=== PATIENT | female | born 1990 | race Hispanic/Latino ===

== ENCOUNTER 2016-09-26 14:31 | Emergency (ER) | payer OTHER ==
[~2016-09-26] VITALS: Ht 162.6 cm; Wt 78.6 kg
[~2016-09-26 14:31] MED LIST: TRAM150C25 PO
[2016-09-26 14:48] VITALS: BP 138/96; PULSE 97; RESP 16; O2SAT 99
[2016-09-26] MEDS ORDERED: HYDROmorphone 0.5 mg/0.5 mL iSecure Syringe IVPUSH ONE (16:50)
[2016-09-26] MEDS ORDERED: Ondansetron 2 mg/mL 2 mL Inj IVPUSH ONE (16:50)
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
[2016-09-26] MEDS ORDERED: HYDR-4003 PO (20:00)
[2016-09-26] MEDS ORDERED: MTH4T PO (20:00)
[2016-09-26] MEDS ORDERED: HYDROcodone-APAP 5-325 mg Tablet PO ONE (20:10)
[2016-09-26 20:31] VITALS: BP 124/74; PULSE 54; RESP 16; O2SAT 100
== END 2016-09-26 20:32 | disposition home or self-care (01) ==
LOC: SED 14:31
DX: S39.012D Strain of muscle, fascia and tendon of lower back, subsequent encounter (principal); S16.1XXD Strain of muscle, fascia and tendon at neck level, subsequent encounter; M51.26 Other intervertebral disc displacement, lumbar region; V48.5XXD Car driver injured in noncollision transport accident in traffic accident, subsequent encounter; Y93.9 Activity, unspecified; Y92.9 Unspecified place or not applicable; Y99.8 Other external cause status; Z87.891 Personal history of nicotine dependence; Z88.5 Allergy status to narcotic agent; Z88.8 Allergy status to other drugs, medicaments and biological substances
CPT/HCPCS: 72125; 72158; 96374; 96375; 99284; A9585; J1170; J2405

== ENCOUNTER 2016-09-30 11:50 | Emergency (ER) | payer OTHER ==
[~2016-09-30] VITALS: Ht 162.6 cm; Wt 78.2 kg
[~2016-09-30 11:50] MED LIST changes: +HYDR-4003 PO; +MTH4T PO
[2016-09-30 11:55] VITALS: BP 126/80; PULSE 104; RESP 16; O2SAT 98
[2016-09-30] MEDS ORDERED: Ketorolac 30 mg/mL 2 mL Inj IM ONE (13:15)
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
[2016-09-30 14:15] LABS: BASOPHILS % (AUTO) 0.3 % (0-3); EOSINOPHILS % (AUTO) 0.7 % (0-5); MONOCYTES % (AUTO) 7.2 % (4-12); Mean Corpuscular Hemoglobin 28.6 pg (27.0-35.0); Mean Corpuscular Volume 86.5 fL (81-100); NEUTROPHILS % (AUTO) 64.9 % (40-74); Platelet Count 208 bil/L (150-400)
[2016-09-30 14:47] LABS: ERYTHROCYTE SEDIMENTATION RATE 1 mm/hr (0-32)
--- NOTE | 2016-09-30 15:32 | DRSVH ---
PROCEDURE: MRI CERVICAL SPINE WITHOUT CONTRAST ([id number]) INDICATIONS: neck and back pain TECHNIQUE: Noncontrast sagittal T1 spin echo and T2 fast spin echo, sagittal STIR, foraminal oblique sagittal T2 fast spin echo, and axial gradient echo or T2 fast spin echo through the cervical spine. COMPARISON: None. FINDINGS: Image quality: Excellent. Alignment and Curvature: There is mild straightening/reversal of normal cervical curvature. There is trace retrolisthesis of C5 on C6. Bone Marrow: Marrow demonstrates normal overall signal. Spinal Cord: Visualized spinal cord has normal size and signal. No cerebellar tonsillar herniation. Paraspinous Soft Tissues: No paravertebral masses. Prevertebral soft tissues are normal in thicknes s. Discs: Mild desiccation is present throughout the cervical spine. C2-C3: No disc bulge, spinal stenosis or foraminal narrowing. C3-C4: Mild disc bulge with mild spinal stenosis. Minimal to mild bilateral foraminal narrowing. C4-C5: Mild disc bulge with mild spinal stenosis. Minimal bilateral foraminal narrowing. C5-C6: Mild disc bulge with mild spinal stenosis. Mild left and minimal to mild right foraminal narro wing. C6-C7: No disc bulge, spinal stenosis or foraminal narrowing. C7-T1: No disc bulge, spinal stenosis or foraminal narrowing. IMPRESSION: 1. Mild disc bulges are present from C3-4 through C5-6. 2. Spinal stenosis is present at C3-4 through C5-6 secondary to disc bulges, with contributing factor with reversal of cervical curvature. 3. Minimal to mild foraminal narrowing as above, predominantly secondary to reversal of cervical curv ature and early degenerative changes. Dictated by: Lata Augustine M.D. on 09/30/2016 at 15:24 Approved by: Lata Augustine M.D. on 09/30/2016 at 15:30
--- NOTE | 2016-09-30 15:35 | DRSVH ---
PROCEDURE: MRI THORACIC SPINE WITHOUT CONTRAST ([id number]) INDICATIONS: neck and back pain TECHNIQUE: Noncontrast sagittal T1 spine echo and T2 fast spin echo, sagittal STIR, axial T1 and T2 fast spin ec ho through the thoracic spine. COMPARISON: None. FINDINGS: Image quality: Excellent. Alignment and Curvature: There is normal bony alignment. Bone Marrow: Marrow is of normal overall signal. No acute vertebral body compression fractures. Spinal Cord: Visualized spinal cord is normal in size and signal. Paraspinous Soft Tissues: No paravertebral masses. Miscellaneous: On axial images, central canal and foramina appear widely patent at all scanned level s. IMPRESSION: 1. No visualized cause of pain. Dictated by: Lata Augustine M.D. on 09/30/2016 at 15:31 Approved by: Lata Augustine M.D. on 09/30/2016 at 15:33
== END 2016-09-30 15:31 | disposition home or self-care (01) ==
LOC: SED 11:50
DX: M54.5 Low back pain (principal); R29.818 Other symptoms and signs involving the nervous system; R32 Unspecified urinary incontinence; V49.9XXA Car occupant (driver) (passenger) injured in unspecified traffic accident, initial encounter; Y92.410 Unspecified street and highway as the place of occurrence of the external cause; Y93.89 Activity, other specified; Y99.8 Other external cause status; Z87.891 Personal history of nicotine dependence; Z88.8 Allergy status to other drugs, medicaments and biological substances; Z88.5 Allergy status to narcotic agent
CPT/HCPCS: 36415; 72141; 72146; 80048; 81002; 81025; 85025; 85651; 96372; 99285; J1885

== ENCOUNTER 2016-10-03 20:02 | Observation (INO) | payer OTHER ==
[~2016-10-03] VITALS: Ht 162.6 cm; Wt 79.2 kg
[2016-10-03 20:25] VITALS: BP 140/90; PULSE 78; RESP 18; O2SAT 99
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
[2016-10-03] MEDS: 0.9% Sodium Chloride 1,000 ML IV SCH ×2 (22:27→23:28)
[2016-10-03] MEDS: Sodium Chloride LOK Flush 10 mL Syringe IVFLUSH SCH (22:27)
[2016-10-03] MEDS: HYDROmorphone 0.5 mg/0.5 mL iSecure Syringe IVPUSH PRN (22:31)
[2016-10-03] MEDS: Ondansetron 2 mg/mL 2 mL Inj IVPUSH PRN (22:32)
[2016-10-03 22:33] VITALS: BP 123/65; PULSE 49; RESP 16; O2SAT 98
[2016-10-03 22:36] LABS: TROPONIN T 0.01 ug/L (0.0-0.011)
[2016-10-03 22:43] LABS: BASOPHILS % (AUTO) 0.2 % (0-3); EOSINOPHILS % (AUTO) 0.4 % (0-5); MONOCYTES % (AUTO) 4.9 % (4-12); Mean Corpuscular Hemoglobin 28.5 pg (27.0-35.0); Mean Corpuscular Volume 86.2 fL (81-100); NEUTROPHILS % (AUTO) 86.6 % (40-74); Platelet Count 261 bil/L (150-400)
[2016-10-04] VITALS (7 sets, daily range): BP systolic 111–133; BP diastolic 58–82; PULSE 52–73; RESP 16–18; O2SAT 98–100
[2016-10-04] MEDS: Ondansetron 2 mg/mL 2 mL Inj IVPUSH PRN ×6 (00:55→22:52)
[2016-10-04] MEDS: HYDROmorphone 0.5 mg/0.5 mL iSecure Syringe IVPUSH PRN ×7 (00:55→23:50)
[2016-10-04] MEDS ORDERED: _HYDROcodone/APAP 5-325 mg Tablet PO PRN (01:25)
[2016-10-04] MEDS ORDERED: _Ondansetron ODT 4 mg Tablet PO PRN (01:25)
[2016-10-04] MEDS ORDERED: _oxyCODONE/APAP 5-325 mg Tablet PO PRN (01:35)
[2016-10-04 01:58] LABS: APPEARANCE,URINE CLEAR (CLEAR,HAZY); COLOR,URINE STRAW (YELLOW); OCCULT BLOOD,URINE MODERATE (NEGATIVE); PH,URINE 6.5 (5.0-8.0); UROBILINOGEN,URINE NORMAL (NORMAL)
[2016-10-04] MEDS ORDERED: Piperacillin-Tazo 3.375 Gm Inj 3.375 GM in Dextrose 5% Minibag Plus 50 ML IV ONE (02:00)
[2016-10-04] MEDS ORDERED: 0.9% Sodium Chloride 1,000 ML IV ONE (02:05)
[2016-10-04] MEDS ORDERED: Alum-Mag Hydrox-Simeth 30 mL Suspension PO PRN (02:25)
[2016-10-04] MEDS ORDERED: Polyethylene Glycol (PEG) 17 Gm Powder PO PRN (02:25)
[2016-10-04] MEDS ORDERED: fentaNYL-PF 50 mCg/mL 2 mL Inj ONE (02:30)
[2016-10-04] MEDS ORDERED: Propofol 10,000 mCg/mL 20 mL Inj ONE (02:30)
[2016-10-04] MEDS ORDERED: OXYC1TAB24 PO (03:33)
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
[2016-10-04] MEDS: Lactated Ringer's 1,000 ML IV SCH ×6 (05:07→22:11)
--- NOTE | 2016-10-04 05:42 | NUR ---
ADMIT; 26 yr old female admitted from [facility] [place] via [facility] at approx. 0310 to room 1028 with c/o nausea/vomiting, back pain, chest pain and right side pain. See admit screens. Zofran given for nausea which helped. Dr. Benoit in to see pt about 4805.
[2016-10-04 07:04] LABS: BASOPHILS % (AUTO) 0.1 % (0-3); EOSINOPHILS % (AUTO) 0.2 % (0-5); MONOCYTES % (AUTO) 2.4 % (4-12); Mean Corpuscular Hemoglobin 28.8 pg (27.0-35.0); Mean Corpuscular Volume 86.8 fL (81-100); NEUTROPHILS % (AUTO) 90.2 % (40-74); Platelet Count 190 bil/L (150-400)
[2016-10-04 07:27] LABS: TROPONIN T 0.01 ug/L (0.0-0.011)
[2016-10-04 07:38] LABS: Magnesium 1.9 mg/dL (1.6-2.6); Phosphorus 2.9 mg/dL (2.5-4.9)
--- NOTE | 2016-10-04 08:06 | DRSVH ---
PROCEDURE: CT ANGIO CHEST PULMONARY EMBOLISM ([id number]) INDICATIONS: chest pain, vomiting, 23K wbc count, abdominal brianna TECHNIQUE: After the administration of intravenous contrast, 2 mm thick sections acquired from the pulmonary api emerson to the posterior costophrenic angles. 3-dimensional maximum intensity projection (MIP) coronal a nd sagittal reformats were then acquired through the thorax. For radiation dose reduction, the follo wing was used: automated exposure control, adjustment of mA and/or kV according to patient size. COMPARISON: None. FINDINGS: Image quality: Excellent. Pulmonary arteries: Pulmonary arteries are normal in size, and demonstrate no intraluminal filling d efects to suggest central pulmonary embolism. Lungs and pleura: Lungs are clear. No pleural effusions or pneumothorax. Central and peripheral ai rways are patent. Mediastinum: Heart size is normal, without pericardial effusion. No mediastinal or hilar adenopathy . Thoracic aorta is normal in caliber and enhancement. Esophagus is normal in caliber. Small hiatal hernia. Bones and chest wall: No suspicious bony lesions. Ribs and thoracic spine appear intact throughout. Thyroid gland is normal. No axillary or supraclavicular adenopathy. Abdomen: Visualized upper abdominal solid organs appear normal in the early arterial phase of enhanc ement. IMPRESSION: 1. No evidence for central pulmonary embolism. 2. Small hiatal hernia. 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 Dictated by: Jayce Valenzuela M.D. on 10/04/2016 at 8:02 Approved by: Jayce Valenzuela M.D. on 10/04/2016 at 8:04
[2016-10-04] MEDS: Sodium Chloride LOK Flush 10 mL Syringe IVFLUSH SCH ×2 (08:30→11:41)
--- NOTE | 2016-10-04 08:32 | DRSVH ---
PROCEDURE: CT ABDOMEN AND PELVIS WITH CONTRAST ([id number]) INDICATIONS: chest pain, vomiting, 23K wbc count, abdominal brianna TECHNIQUE: After the administration of intravenous contrast, 5 mm thick sections acquired from the diaphragm to the symphysis. 5 mm coronal and sagittal reformats were acquired. For radiation dose reduction, the following was used: automated exposure control, adjustment of mA and/or kV according to patient zoila kim. COMPARISON: [facility], CT, ABD/PELVIS W/CON (PN), 12/31/2014, 23:24. FINDINGS: Image quality: Excellent. ABDOMEN: Lung bases: Lung bases are clear. Heart size is normal. Solid organs: Liver and spleen are normal in size and enhancement. Gallbladder surgically absent. Biliary system is non dilated. Pancreas enhances normally. No adrenal nodules. Kidneys demonstrate normal size and enhancement, without hydronephrosis. Peritoneum and bowel: No free fluid or free air. No definite bowel obstruction. There is diffuse flui d throughout the small and large bowel loops. No definite bowel wall thickening or adjacent inflammat ory stranding. The rectum decompressed otherwise unremarkable. Appendix appears normal Nodes and vessels: No retroperitoneal or mesenteric adenopathy by size criteria. Aorta and inferior vena cava are normal in size. Miscellaneous: No ventral hernias. PELVIS: Genitourinary: Bladder wall thickness is normal. Miscellaneous: No inguinal hernias or adenopathy. Bones: No suspicious bony lesions. No vertebral body compression fractures. IMPRESSION: Diffuse fluid seen throughout small and large bowel loops raises the possibility of enterocolitis/gas troenteritis. Recommend clinical correlation Elsewhere, no acute abnormality. Normal appendix. Dictated by: Alli Story M.D. on 10/04/2016 at 8:25 Approved by: Alli Story M.D. on 10/04/2016 at 8:31
--- NOTE | 2016-10-04 08:48 | DRSVH ---
PROCEDURE: X-RAY CHEST ONE VIEW, PORTABLE ([id number]) INDICATIONS: 26 year-old female with chest pain and vomiting. TECHNIQUE: One view of the chest was acquired. COMPARISON: [facility], CR, ABD ACUTE SERIES, 02/23/2015, 20:42. [facility] , CR, CHEST 2VW, 12/10/2010, 16:19. [facility], , ABD ACUTE SERIES, 07/27/2010, 6:50. FINDINGS: Surgical changes and devices: Patient is status post cholecystectomy. Lungs and pleura: No pleural effusions or pneumothorax. Lungs are clear. Mediastinum: Mediastinal contours appear normal. Heart size is normal. Bones and chest wall: No suspicious bony lesions. Overlying soft tissues appear unremarkable. IMPRESSION: No acute cardiopulmonary disease. Dictated by: Byron Turner M.D. on 10/04/2016 at 8:46 Approved by: Byron Turner M.D. on 10/04/2016 at 8:46
--- NOTE | 2016-10-04 09:30 | NUR ---
Imaging Pt taken via WC saline locked to diagnostic imaging for Gastrografin esophageal swallow study. Addendum: 10/04/16 at 1047 by LUCILA POLLACK RN Pt returns @ 2575. Left floor at 0855.
[2016-10-04] MEDS: Pantoprazole 4 mg/mL 10 mL Inj IVPUSH SCH (10:01)
[2016-10-04] MEDS: Piperacillin-Tazo 3.375 Gm Inj 3.375 GM in Dextrose 5% Minibag Plus 50 ML IV SCH ×2 (10:02→17:49)
[2016-10-04] MEDS ORDERED: 0.9% Sodium Chloride 0 ML ONE (10:50)
--- NOTE | 2016-10-04 12:42 | DRSVH ---
PROCEDURE: X-RAY GASTROGRAPHIN STUDY OF ESOPHAGUS/PHARYNX ([id number]) INDICATIONS: ? esophageal rupture. Plz Gastrografin COMPARISON: [facility], CT, CT ABD PELVIS W CON, 10/03/2016, 23:53. [facility], CT, CT ANGIO CHEST PE, 10/03/2016, 23:53. [facility], CR, XR CHEST 1VW (PORTABLE), , 22:07. FINDINGS: Limited Gastrografin esophagram demonstrates normal appearance of the esophagus and there is no evide nce of esophageal perforation. The attending physician was personally present in the room during the examination. IMPRESSION: No esophageal perforation identified. Dictated by: Abraham Cartagena RRRaul Interpreted: Johny Benites MD on 10/04/2016 at 12:40 Transcribed by: MARY on 10/04/2016 at 12:42 Approved by: Johny Benites M.D. on 10/04/2016 at 17:07
--- NOTE | 2016-10-04 13:48 | NUR ---
Social Work-initial assessment: Data:EMR Reviewed. Pt is a 26 y/o female who was admitted on 10/04/16 for intractable chest and abdominal pain per H&P. Pt has coordinated care insurance and PCP is not listed. EMR reviewed. SW met with pt at bedside, SW role explained. Pt resides at home with her family in [place] where she remains independent with ADLS. Pt drives and does not use any DME. SW discussed pt's lack of PCP. Pt informed SW that she has appointment scheduled with Dr. Cowan for October to establish care. SW discussed DPOA/ advanced directive, pt states she has not completed this, information provided. Per RN notes, pt has been up independent in her room. Pt's mother to provide transport home at discharge. No anticipated discharge needs. SW will continue to follow if needs arise. Assessment:Pt who is independent at baseline. Plan:Pt to discharge home when medically stable via POV. No anticipated discharge needs. SW will continue to follow if needs arise. REG [place]
--- NOTE | 2016-10-04 15:51 | NUR ---
Endo Pt leaves via [facility] to Endoscopy for upper endo. RA LEXI. Addendum: 10/04/16 at 1745 by LUCILA POLLACK RN Pt comes back from ENDO 1729. Nausea, dry heaving and painful. Care continues
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
--- NOTE | 2016-10-04 16:57 | PCM.ENDEGD ---
EGD Date of Service: Oct 04, 2016 Physician Val Perkins DO Pre Procedure Diagnosis: Epigastric pain nausea vomiting Post Procedure Dx & Findings: Bilious reflux antral erosions Procedure Esophagogastroduodenoscopy PROCEDURE IN DETAIL: The patient was placed in left lateral decubitus position. Bite block was placed. Scope lubricated, placed in posterior pharynx, passed through the cricopharyngeus and esophagus, slowly advanced the entire length of the gastric pouch, pylorus was identified, scope passed through the pylorus and descending portion of duodenum, withdrawn in the antrum, retroflexed upon itself for view of fundus and cardia. Scope was then withdrawn through the oropharynx. We introduce the scope into the esophagus and as we entered into the distal esophagus, there was evidence of biliary years reflux into the esophagus. The Z line was intact at 39 cm. The stomach showed normal rugae folds and antrum showed several superficial erosions up to a centimeter in size. Biopsies obtained. Retroflexion was done. Stomach was easily inflated well and deflated well using air. Cardia fundus body antrum and pylorus were all visualized. Also in the stomach, there was a significant amount of bilious material. Scope further advanced into the proximal jejunum. Normal villous structures with normal rugae folds were noted. Impression Suspected bilious reflux Antral erosions status post biopsy Recommendation Carafate 10 mL by mouth 4 times a day. Continue Protonix 40 mg IV once a day Clear liquid diet and advance as tolerated starting tomorrow Avoid narcotics Encourage ambulation Presedation Assessment Risks and Benefits Informed consent was obtained from the patient after all risks and benefits including but not limited to drug reaction, infection, pain, bleeding, perforation, as well as alternatives were discussed. Patient monitoring Continuous pulse oximetry, cardiac monitoring, blood pressure monitoring, IV access, and oxygen at 2L per nasal cannula. Complications There were no periprocedural complications identified. Post Procedure Plan Post Procedure Recommendations 1. Restrict activities today. 2. Resume normal activities in the morning. 3. Resume medications. 4. GERD behavioral modification: - Avoid fatty, acidic, spicy, large meals - Do not lie down after meals - Do not eat or drink anything for at least 2 1/2 hours before going to bed at night - Discontinue tobacco and alcohol - Decrease or avoid caffeine - Avoid chocolate and mints - Decrease weight - Avoid aspirin and non steroidal anti-inflammatory agents (NSAID) such as Aleve, Advil, Mobic, Naproxen, Ibuprofen, etc 5. Add proton pump inhibitor. Take 30 minutes before 1st meal of the day. 6. Patient informed of normal post procedure side effects as bloating, drowsiness, blood streaking in the stool 7. If gastric biopsy reveal H.pylori, continue with appropriate treatment 8. If small bowel biopsy reveals celiac, continue with appropriate treatment 9. Please don't hesitate to call me with any questions Min Stock MD Oct 04, 2016 16:57
[2016-10-04] MEDS: Sucralfate 100 mg/mL 10 mL Suspension PO SCH (22:11)
[2016-10-05] MEDS: Sodium Chloride LOK Flush 10 mL Syringe IVFLUSH SCH ×3 (00:30→16:30)
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
[2016-10-05] MEDS: Piperacillin-Tazo 3.375 Gm Inj 3.375 GM in Dextrose 5% Minibag Plus 50 ML IV SCH ×3 (02:31→18:49)
--- NOTE | 2016-10-05 04:22 | NUR ---
Shift Note Pt c/o chest pain 7/10 on pain scale w/ nausea. Previously pt was receiving 0.5mg Dilaudid and 8mg Zofran q4 and pt stated it was not lasting and barely taking the edge off the pain. Pt was given 8mg IV Zofran and 0.5mg IV Dilaudid @2253 followed by another 0.5mg Dilaudid @2350. Pt stated the second dose made a huge difference and she has been resting through the night comfortably. Bed down, locked, and call light within reach.
[2016-10-05 05:36] VITALS: BP 102/66; PULSE 56; RESP 16; O2SAT 100
[2016-10-05 06:59] LABS: Mean Corpuscular Hemoglobin 28.5 pg (27.0-35.0); Mean Corpuscular Volume 87.8 fL (81-100)
[2016-10-05] MEDS: Sucralfate 100 mg/mL 10 mL Suspension PO SCH ×4 (08:33→21:55)
[2016-10-05] MEDS: Pantoprazole 4 mg/mL 10 mL Inj IVPUSH SCH (08:34)
[2016-10-05 09:35] VITALS: BP 132/82; PULSE 47; RESP 11; O2SAT 98
[2016-10-05] MEDS: Ondansetron 2 mg/mL 2 mL Inj IVPUSH PRN ×3 (10:03→20:32)
[2016-10-05] MEDS: HYDROmorphone 0.5 mg/0.5 mL iSecure Syringe IVPUSH PRN ×3 (10:52→21:56)
[2016-10-05 13:02] VITALS: BP 135/85; PULSE 41; RESP 13; O2SAT 100
--- NOTE | 2016-10-05 14:07 | PCM.PNMED ---
Subjective Date of Service Oct 05, 2016 Subjective GI Service progress note: This is a 26 year old female with history significant for longstanding GERD, anorexia, hiatal hernia, PTSD, bipolar, depression, and anxiety who presented on 10/04/2016 for nausa, coffee ground emesis, and abdominal pain. CT scan on admit showed diffuse fluid throughout the small and large bowel loops without bowel thickening or inflammatory stranding. Gastrografin barium study showed no concerning abnormalities. EGD showed suspected bilious reflux and antral erosions s/p biopsy. WBC on admit was 23.2. LFT's and lipase were wnl.. She continues on Zosyn today (day 2) Overnight, the patient continued to have abdominal pain located in the right upper quadrant. She required multiple dose of Dilaudid to control the pain. She states that the pain is improved though. After her EGD she did have one episode of bowel incontinence described as "dark and soft." She denies any nausea or vomiting, fevers, night sweats, shortness of breath, chest pain or pressure, diaphoresis. A comprehensive review of systems was conducted with the patient and found to be negative except as above in the History of Present Illness. Exam Vital Signs Vital Sign - Last Date Time Temp Pulse Resp B/P Pulse Ox O2 Delivery O2 Flow Rate FiO2 10/05/16 05:36 36.9 56 16 102/66 100 Room Air Intake and Output 10/04/16 10/04/16 10/05/16 Cumulative From/Thru 15:00 23:00 07:00 10/03/16 20:25 - 10/05/16 06:19 Intake Total 973 ml 979 ml 3952 ml Output Total 300 ml 700 ml Balance 673 ml 979 ml 3252 ml Intake Oral 0 ml 200 ml 200 ml IV Total 973 ml 779 ml 3752 ml Output Urine Total 300 ml 700 ml # Voids 1 2 3 # Bowel Movements 1 1 2 Exam General: No acute distress, well-developed, well-nourished, appropriately interactive HEENT: Normocephalic, atraumatic. External ears without defect. Anicteric sclerae, moist conjunctivae, and no lid lag. Oropharynx free of erythema and cobble stoning with moist mucosa. Cardiovascular: Regular rate and rhythm with no murmurs, rubs, or gallops appreciated Pulmonary: Clear to auscultation bilaterally with no crackles, wheezes, or rhonchi. Normal respiratory effort with no use of accessory muscles. Abdomen: Bowel tones present and hyperactive. Soft, nondistended. She is diffusely tender throughout abdomen, worse in right upper quadrant. There is no rebound or guarding. No hepatosplenomegaly or masses appreciated. Extremities: No clubbing, cyanosis, edema, or lymphadenopathy appreciated. Skin: Normal temperature, turgor, and texture; no rash, ulcers, or subcutaneous nodules appreciated. Psychiatric: Normal mood and affect. IVs and Medications Medications Reviewed: Medications were reviewed in detail Lab and Diagnostics Result Diagram: 10/05/16 0650 10/04/16 0652 Microbiology No micro-studies so far this hospitalization X-Rays, CTs and MRIs CT abdomen and pelvis with contrast on 10/03/2016: IMPRESSION: Diffuse fluid seen throughout small and large bowel loops raises the possibility of enterocolitis/gastroenteritis. Recommend clinical correlation Elsewhere, no acute abnormality. Normal appendix. Dictated by: Alli Story M.D. on 10/04/2016 at 8:25 X-RAY GASTROGRAPHIN STUDY OF ESOPHAGUS/PHARYNX on 10/04/2016: IMPRESSION: No esophageal perforation identified. Dictated by: Abraham Cartagena RRA Interpreted: Johny Benites MD on 10/04/2016 at 12:40 12-lead ECG Demonstrates sinus bradycardia with a heart rate of 49. Intervals are all within normal limits. No ST or T-wave changes to suggest ischemia at this time. Additional Diagnostics EGD on 10/04/2016: Impression: Suspected bilious reflux Antral erosions status post biopsy Min Stock MD Assessment & Plan Impression: This is a 26 year old female with history of longstanding GERD, anxiety, PTSD, bipolar, depression and s/p cholecystectomy who presented with abdominal pain, nausea, and reported history of emesis who is hospital day 2. Patient reports that the abdominal pain has improved. She is still diffusely tender in abdomen (worse in right upper quadrant). She has normal LFTs. Her WBC on admit was 23 but has now normalized. EGD on 10/04/2016 showed suspected bilious reflux and antral erosions s/p biopsy. Plan: Bilious reflux: -Continue IV fluids. -Advance diet as tolerated. -Encourage ambulation. -Protonix 20mg BID for 1 month. Then switch to Protonix 20mg qd from then on. -Carafate 10ml QID for 1st month. Then 10ml TID for 2nd month, 3rd month 10ml BID, and then 10ml qd. If symptoms return at 10ml qd increased to BID. -Consider gastric emptying study if no improvement or worsening. -GERD behavioral modification including avoiding NSAIDS. -Avoid opiates. GI Prophylaxis: Proton Pump Inhibitor VTE Mechanical Devices: Intermittant Pneumatic CD Resuscitation Status: CPR: Attempt Resuscitation Morgan Pruett DO Oct 05, 2016 08:18
--- NOTE | 2016-10-05 14:43 | NUR ---
Social Work- Readiness for Discharge: Data: Pt is on day 1 of hospitalization for intractable chest/abdominal pain per H&P. Pt is not medically stable, anticipate 1-2 more days. Per MD, pt has EGD yesterday and diet continues to advance as tolerated. Per nursing notes, pt is independent in room. Pt's mother to provide transport home at discharge. No anticipated discharge needs. SW will continue to follow if needs arise. Assessment: Pt who is independent at baseline. Plan: Pt's mother to provide transport home at discharge. No anticipated discharge needs. SW will continue to follow if needs arise. Halina Villarreal MSW
--- NOTE | 2016-10-05 17:41 | NUR ---
Pain/nausea/blood Patient continues with abdominal discomfort rating mostly 7/10 . Patient with intermittent nausea medicated with Zofran that seems to help some. Pt up to bathroom had small loose stool and 1 small clot noted on urine catcher , patient unsure if this was from vaginally area ( possible menstrual) or rectally. pt informed to call staff any further occurred and it would be reported to . No further blood noted.
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
[2016-10-05] MEDS ORDERED: 0.9% Sodium Chloride 250 ML ONE (18:21)
--- NOTE | 2016-10-05 19:26 | NUR ---
Pain P- Pt C/O intractable chest/abdominal pain at a level of 7/10 along with nausea. I- Pt given 1 mg Dilaudid along with 8 mg Zofran to relieve pain and nausea. E- pain subsided to an acceptable level of 3/10, nausea also reduced, although Pt still lacks an appetite.
[2016-10-05 19:38] VITALS: BP 126/81; PULSE 59; RESP 16; O2SAT 99
[2016-10-06] MEDS: Sodium Chloride LOK Flush 10 mL Syringe IVFLUSH SCH ×3 (00:24→16:21)
[2016-10-06] MEDS: Piperacillin-Tazo 3.375 Gm Inj 3.375 GM in Dextrose 5% Minibag Plus 50 ML IV SCH (01:50)
[2016-10-06] MEDS: HYDROmorphone 0.5 mg/0.5 mL iSecure Syringe IVPUSH PRN ×2 (01:50→05:48)
--- NOTE | 2016-10-06 03:22 | NUR ---
BM/Pain Patient had moderate amount of loose BM at beginning of shift. Guaiac specimen obtained and sent to lab. No blood noted upon visual inspection. Complaining of constant 7/10 back, chest, and abdominal pain. Receiving Dilaudid 1mg IVP [id number] with some relief. States it helps initially then starts to wear off. Remains pleasant and cooperative with care.
[2016-10-06 05:40] VITALS: BP 98/52; PULSE 60; RESP 18; O2SAT 100
[2016-10-06 06:43] LABS: Mean Corpuscular Hemoglobin 28.5 pg (27.0-35.0); Mean Corpuscular Volume 86.6 fL (81-100)
[2016-10-06 07:14] VITALS: BP 133/79; PULSE 41; RESP 12; O2SAT 100
[2016-10-06] MEDS ORDERED: Potassium Chloride 20 mEq SR Tablet PO ONE (07:55)
[2016-10-06] MEDS: Pantoprazole 4 mg/mL 10 mL Inj IVPUSH SCH (08:20)
[2016-10-06] MEDS: Sucralfate 100 mg/mL 10 mL Suspension PO SCH ×3 (08:21→16:22)
--- NOTE | 2016-10-06 08:46 | PCM.PNMED ---
Subjective Date of Service Oct 06, 2016 Subjective GI Service progress note: This is a 26 year old female with history significant for longstanding GERD, anorexia, hiatal hernia, PTSD, bipolar, depression, and anxiety who presented on 10/04/2016 for nausa, coffee ground emesis, and abdominal pain. CT scan on admit showed diffuse fluid throughout the small and large bowel loops without bowel thickening or inflammatory stranding. Gastrografin barium study showed no concerning abnormalities. EGD showed suspected bilious reflux and antral erosions s/p biopsy. WBC on admit was 23.2. LFT's and lipase were wnl.. She continues on Zosyn today (day 3) Overnight, the patient continued to have abdominal pain located in the right upper quadrant although she states this has improved. She cohtinues to require Dilaudid 1mg q4h mainly for back pain.. Yesterday, she had two bowel movements with a witnessed, small blood clot by nursing. She also describes several episodes of nausea with vomiting. Nursing did witness one of these episodes and stated that she was "dry heaving." She denies any fevers, night sweats, shortness of breath. Exam Vital Signs Vital Sign - Last Date Time Temp Pulse Resp B/P Pulse Ox O2 Delivery O2 Flow Rate FiO2 10/06/16 07:14 36.9 41 12 133/79 100 Room Air Intake and Output 10/05/16 10/05/16 10/06/16 Cumulative From/Thru 15:00 23:00 07:00 10/03/16 20:25 - 10/06/16 06:32 Intake Total 780 ml 1142 ml 5874 ml Output Total 500 ml 1505 ml 2705 ml Balance 280 ml -363 ml 3169 ml Intake Oral 780 ml 800 ml 1780 ml IV Total 342 ml 4094 ml Output Urine Total 500 ml 1225 ml 2425 ml Stool Total 280 ml 280 ml # Voids 3 4 10 # Bowel Movements 2 4 Exam General: No acute distress, well-developed, well-nourished, appropriately interactive HEENT: Normocephalic, atraumatic. Cardiovascular: Regular rate and rhythm with no murmurs, rubs, or gallops appreciated Pulmonary: Clear to auscultation bilaterally with no crackles, wheezes, or rhonchi. Normal respiratory effort with no use of accessory muscles. Abdomen: Bowel tones present. abdomen soft, nondistended. Tenderness in right upper quadrant. There is no rebound or guarding. No hepatosplenomegaly or masses appreciated. Extremities: No clubbing, cyanosis, edema, or lymphadenopathy appreciated. Psychiatric: Normal mood and affect. Rectal exam: Skin around anus showed no erythema, swelling. There was no discharge or bleeding. Anal tone wnl. No masses palpated. Examination of glove showed yellow mucous but no visualized blood. Tack Coverer: Rowena Engle Rn Lab and Diagnostics Result Diagram: 10/06/1661410/06/16614 Microbiology No micro-studies so far this hospitalization X-Rays, CTs and MRIs CT abdomen and pelvis with contrast on 10/03/2016: IMPRESSION: Diffuse fluid seen throughout small and large bowel loops raises the possibility of enterocolitis/gastroenteritis. Recommend clinical correlation Elsewhere, no acute abnormality. Normal appendix. Dictated by: Alli Story M.D. on 10/04/2016 at 8:25 X-RAY GASTROGRAPHIN STUDY OF ESOPHAGUS/PHARYNX on 10/04/2016: IMPRESSION: No esophageal perforation identified. Dictated by: Abraham Cartagena [facility] Interpreted: Johny Benites MD on 10/04/2016 at 12:40 12-lead ECG Demonstrates sinus bradycardia with a heart rate of 49. Intervals are all within normal limits. No ST or T-wave changes to suggest ischemia at this time. Additional Diagnostics EGD on 10/04/2016: Impression: Suspected bilious reflux Antral erosions status post biopsy Min Stock MD Assessment & Plan This is a 26 year old female with history of longstanding GERD, anxiety, PTSD, bipolar, depression and s/p cholecystectomy who presented with abdominal pain, nausea, and reported history of emesis who is hospital day 3. Patient reports that the abdominal pain has improved. She is shaping machine tender in abdomen (worse in right upper quadrant). However the tenderness is improvement. Nausea is still persistent however I would expect nausea to improve more slowly. She has normal LFTs. Her WBC on admit was 23 but has now normalized. EGD on 10/04/2016 showed suspected bilious reflux and antral erosions s/p biopsy. Reported episode of blood clot in stool. Hgb stable. The blood clot that was reported was 1 small clot on the urine catcher. This was actually identified by the student driving instructor. This was not witnessed by the nursing staff. Rectal examination was done in presence of a nurse in a student driving instructor. Rectal vault was all essentially empty except first small smear of yellowish mucousy stool. This is inconsistent with any kind of lower GI bleeding. Hemoglobin is also stable. Plan: Bilious reflux: -Continue IV fluids. -Advance diet as tolerated. -Encourage ambulation. -Protonix 40mg BID PO for 1 month. Then switch to [id number] qd for two weeks. Then to Protonix 20mg qd indefinitely. -Carafate 10ml QID for 1st month. Then 10ml TID for 2nd month, 3rd month 10ml BID, and then 10ml qd. If symptoms return at 10ml qd increased to BID. -Consider gastric emptying study if no improvement or worsening. -GERD behavioral modification including avoiding NSAIDS. -Consider psychiatric consult for stress anxiety. Improvement of the symptoms may improve her nausea and perception of abdominal discomfort. -We recommend transition a quick taper of intravenous opiates as this may be worsening patients nausea. She was telling me that she is having more low back pain issue. If she needs narcotics, I would minimize the dose and switch to oral. Also recommend physical therapy. -Rectal exam today showed no blood. If patient has another blood clot we will consider and colonoscopy. Case discussed with Dr. Dugan I have seen and examined the patient with the resident. Agree with above. GI Prophylaxis: Proton Pump Inhibitor VTE Mechanical Devices: Intermittant Pneumatic CD Resuscitation Status: CPR: Attempt Resuscitation Morgan Pruett DO Oct 06, 2016 08:28 Min Stock MD Oct 06, 2016 14:29
--- NOTE | 2016-10-06 10:32 | NUR ---
GI Pt reports vomiting, this was not witnessed. Small amount (~50cc)of clear mucus with very small amounts of food in toilet/hat. She did drink almond milk and ate small bites of cereal and toast; reports that it feels like it is 'getting stuck in my chest.' Also reports increased L side pain after eating.
[2016-10-06 11:12] VITALS: BP 127/76; PULSE 55; RESP 11; O2SAT 99
[2016-10-06] MEDS ORDERED: SUCR1ORA PO (11:16)
[2016-10-06] MEDS ORDERED: PANT40TA2 PO (11:16)
--- NOTE | 2016-10-06 12:12 | PCM.DIMED ---
Discharge Instructions Date of Service Oct 06, 2016 Dates of Hospitalization Oct 04, 2016 at 02:29 Discharge Diagnosis Discharge Diagnosis #1 sudden worsening of substernal/mid-epigastric pain, acute perhaps on chronic. Present on admission. Improved - suspect symptoms likely GI related. - post esophagogastroduodenoscopy (EGD) on 10/04/16 showing suspected bilious reflux and antral erosions post biopsy - Consider gastric emptying study as outpatient if no improvement or worsening of symptoms #2 sudden onset nausea and vomiting, acute. Present on admission. - improved but not resolved #3 dilated fluid-filled small bowel loops suspicious for developing gastroenteritis. Present on admission -Management as above #4 report of blood in stool - red blood cell count stable #5 leukocytosis with neutrophilia, acute. Present on admission. Resolved #6 mild hypokalemia, acute. Present on admission - Rsolved #7 hyperglycemia, acute. Present on admission - Likely secondary to the steroids, with possible stress/pain induced reaction - Resolved Diet No restrictions Activity No restrictions Call your provider Fever or Chills, Shortness of breath, Bleeding, Chest pain, Vomitting, Excessive diarrhea Patient Instructions Seek immediate medical attention if any new or worsening signs or symptoms occur. Followup with primary care provider regarding pending Thyroid panel results Follow-up plan 1. Followup with new primary care provider (Dr Frazier) [facility] on October 21, 2016 at 2:10pm [facility] [address] [place] [id number] 2. Followup with gastroenterology (Tasha Gonzalez PA-C) @ the GI clinic on October 15, 2016 at 1:05pm. [address] [address] Follow-up Provider: Mj Frazier DO Follow-up with PCP in: Other (October 21, 2016 at 2:10pm ) Provider: Tasha Gonzalez PA-C Follow-up in: Other (October 15, 2016 at 1:05pm) Edi Dugan Oct 06, 2016 12:12
--- NOTE | 2016-10-06 12:29 | PATH ---
SURGICAL PATHOLOGY Attending Physician:Min Stock M.D. CASE STATUS: Signed Out PATIENT NAME: DARWIN MENDEZ PID: [id number] : 1990 DATE COLLECTED:10/04/2016 00:00 SPECIMEN: Stomach, Antrum, Biopsy CLINICAL HISTORY: Chest Pain Antral Erosions 1). ANTRAL EROSION BX FINAL DIAGNOSIS: 1.BIOPSY, GASTRIC ANTRUM: DIFFUSE MILD CHRONIC GASTRITIS WITH FOCAL MUCOSAL EROSION INVOLVING ANTRAL MUCOSA. Negative for evidence of Helicobacter. Negative for intestinal metaplasia. Negative for dysplasia and malignancy. ICD10 code K29.70 GROSS DESCRIPTION: The specimen is received in one formalin filled container labeled with the patient's name, sublabeled "antral erosion" and consists of 2 portions of tissue which aggregate to 0.3 x 0.3 x 0.2 CM. The specimen is entirely submitted in one cassette. 10/05/2016 DAC MICRO DESCRIPTION: See diagnosis. ICD-9 CODES: CPT CODES: 1: 58383 Electronically Signed Out Miky Perez MD [facility] [address], [place] [address] Technical component performed at [facility], [address] [place] [address] Ave[address], [place], [address]
--- NOTE | 2016-10-06 12:48 | NUR ---
Social Work- Discharge Data: EMR reviewed. Pt is on day2 of hospitalization for intractable chest and abdominal pain per H&P. Pt medically stable for discharge today. Per nursing notes, pt has been independent in room. Pt to discharge home with to transport via POV. No discharge needs. Assessment: Pt who is independent at base. Plan: Pt to discharge today. Pt to discharge home with to transport via POV. No discharge needs. [facility] [place]
[2016-10-06] MEDS ORDERED: ZOF8 PO (13:08)
[2016-10-06] MEDS ORDERED: OXYC1TAB24 PO (13:08)
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
[2016-10-06] MEDS ORDERED: Pantoprazole 40 mg ER24 Tablet PO SCH (16:30)
--- NOTE | 2016-10-06 19:01 | NUR ---
Discharge To home via private vehicle with at 18:48. Steady gait to door; declines wheelchair. IV discontinued intact. Pt expresses understanding of all discharge instructions and care notes, including meds and followup. Rx given. All personal belonging sent with pt.
[2016-10-07 06:10] LABS: Free Thyroxine Index 2.2 (1.2-4.9); Thyroxine (T4) 6.3 ug/dL (4.5-12.0)
== END 2016-10-06 19:00 | disposition home or self-care (01) ==
LOC: SED 20:02 → OSC 10-04 02:29
PROVIDERS: ADMIT Internal Medicine; ATTEND Internal Medicine
DX: R10.13 Epigastric pain (principal); R11.2 Nausea with vomiting, unspecified; R94.8 Abnormal results of function studies of other organs and systems; K92.1 Melena; K29.50 Unspecified chronic gastritis without bleeding; D72.829 Elevated white blood cell count, unspecified; R73.9 Hyperglycemia, unspecified; E87.6 Hypokalemia
CPT/HCPCS: 36415; 43239; 71010; 71275; 74177; 74220; 80048; 80053; 81001; 83690; 83735; 84100; 84436; 84443; 84479; 84484; 84702; 85025; 85027; 85379; 93005; 96361; 96365; 96375; 96376; 99285; G0378; J1170; J2405; J2543; J3010; J7030; J7050; J7120; Q9963; Q9967

== ENCOUNTER 2016-11-29 11:51 | Emergency (ER) | payer OTHER ==
[~2016-11-29] VITALS: Ht 162.6 cm; Wt 79.5 kg
[~2016-11-29 11:51] MED LIST changes: -HYDR-4003 PO; -MTH4T PO; +OXYC1TAB24 PO; +PANT40TA2 PO; +SUCR1ORA PO; -TRAM150C25 PO; +ZOF8 PO
[2016-11-29 12:00] VITALS: BP 115/73; PULSE 52; RESP 16; O2SAT 98
--- NOTE | 2016-11-29 14:22 | ED.REPORT ---
HPI-Back Pain Under 40 Date of Service Nov 29, 2016 ED Provider: Radha Sol MD 26 year old female with a history of multilevel disc degeneration and multiple bulging discs presents to the ER complaining of acute on chronic back pain and loss of sensation in her lower extremities. She states that she experienced a bout of urinary incontinence last night, and subsequently had sexual intercourse and was unable to feel it. This morning she tried to have a bowel movement but she was unable to bear down. Associated symptom of "heaviness" in her neck and numbness of the left arm. Symptoms have been treated with Tylenol without relief. Typically she has flare-ups of her chronic pain every 3-4 weeks , and she reports "twinges" this week leading up to today that are often indicative of these flare-ups. Previously she was on gabapentin but discontinued this due to adverse anxiety reaction. Nursing Notes Stated Complaint: NECK/BACK PAIN Chief Complaint: Back Pain or Injury Nursing Notes Reviewed: Yes Allergies: Coded Allergies: codeine (Verified Allergy, Intermediate, RASH, 11/29/16) lips swell metoclopramide (Verified Allergy, Intermediate, ANXIETY, 11/29/16) Scheduled Dexamethasone (Dexamethasone) 4 Mg Tablet 10 MG PO DAILY 10mg daily on 11/30 and 12/[address] (Protonix) 40 Mg Tablet 40 MG PO ASDIRECTED Take one tablet (40mg) twice daily (BID) for 1 month then, Take one tablet ( 40mg) once daily for two weeks then, Take Protonix 20mg daily indefinitely Scheduled PRN Naproxen (Naprosyn) 500 Mg Tablet 500 MG PO BID PRN PRN For Pain Ondansetron (Zofran) 8 Mg Tablet 8 MG PO Q4H PRN PRN For Nausea Valacyclovir (Valacyclovir) 1,000 Mg Tablet PRN cold sores General Time Seen by MD: 14:19 Chief Complaint Back pain, Neck pain, Other (Loss of Sensation in the Lower Extremities) Hx Obtained From: Patient Arrived By: Walk-in Sudden in Onset?: No Onset Occurred: Yesterday Symptom Duration: Since onset Caused by: Chronic Injury Location: : Spinal lumbar area: Spinal thoracic area Quality: Painful Severity: Current: Moderate Severity: Maximum: Moderate Associated with: Reports: Incontinence bladder, Numbness both low ext Similar Sx Previous: No Past Medical History Past Medical History Anorexia Hiatal hernia Not yet diagnosed heart problem with palpitations Spinal stenosis C3-C6 Multilevel disc degeneration Asthma PTSD Bipolar disorder Depression Anxiety Cutting Previous suicide attempt Past Surgical History Reports: Cholecystectomy, Tonsillectomy Smoking History Former Smoker Social History Alcohol Use: Denies alcohol use Drug Use: Denies drug use, THC Other Social History: Local resident Ambulatory Status Independent Review of Systems Constitutional: Denies: Chills, Fever Female: Reports: Incontinence Musculoskeletal: Reports: Back pain, Lumbar pain, Neck pain Neurologic: Reports: Bladder dysfunction, Bowel dysfunction, Numbness (Lower Extremities), Denies: Headache, Seizure Complete sys rev & neg: except as marked. Physical Exam Initial Vital Signs Vital Signs (First) Date Time Temp Pulse Resp B/P Pulse Ox O2 Delivery O2 Flow Rate FiO2 11/29/16 12:00 37.0 52 16 115/73 98 Initial VS: Reviewed Head / Eyes: Atraumatic, Normocephalic Neck: Supple, Non-tender, Full range of motion Respiratory: Breath sounds normal, Clear to auscultation, No respiratory distress Cardiovascular: Regular rate & rhythm, Heart sounds normal, Intact distal pulses Abdomen / GI: Soft, Non-tender, No guarding, No rebound, No distention Extremities: Vascular intact, Neuro intact, No swelling, No tenderness Skin: Warm, Dry, No cyanosis General/Constitutional: Awake, Alert, Well developed, Well nourished Neurologic: Oriented X3, Speech NL Slight decrease in sensation on the Left lower extremity. Decreased patellar tendon reflex, bilaterally. Saddle anesthesia. Decreased Left hand pinch grasp. Wrist / Hand: Full range of motion, No deformity, Vascular intact Interosseus wasting of the left hand. Interpretation & Diagnostics Lab Results Interpretation Lab Results Interpretation: cervical spine: IMPRESSION: 1. Mild disc bulges are present from C3-4 through C5-6. 2. Spinal stenosis is present at C3-4 through C5-6 secondary to disc bulges, with contributing factor with reversal of cervical curvature. 3. Minimal to mild foraminal narrowing as above, predominantly secondary to reversal of cervical curvature and early degenerative changes. Dictated by: Lata Augustine M.D. on 09/30/2016 at 15:24 Thorasic spine: IMPRESSION: 1. No visualized cause of pain. Dictated by: Lata Augustine M.D. on 09/30/2016 at 15:31 Lumbar spine: IMPRESSION: No abnormal enhancement. Mild L1-L2 canal narrowing. No foraminal stenosis. Dictated by: Alli Story M.D. on 09/26/2016 at 18:59 Re-Eval/Medical Decision Source of Hx: Old records Discharge & Departure Impression: Primary Impression: Cervical spinal stenosis Additional Impression: Lower extremity weakness Ruled Out: Cauda equina syndrome Disposition: Home All VS Reviewed: Yes Condition: Stable Patient Instructions: Cervical Spinal Stenosis (DC) I agree that your symptoms are concerning. I reviewed your C, T, L spine MRIs from September with our neurosurgery PA. You have an apt in the [facility] clinic on 12/08 at 11am with senait Marr. You can use decadron 10mg on 11/30 and 12/01. After that, please use naprosen 500mg am and pm. You can add tylenol to this - max of 4 doses of extra strength tylenol in a 24hr period. Do NOT use ibuprofen with naprosen (they are too similar). I hope you feel better and get to some actual answers. Referrals: Mj Frazier DO (PCP) Scribe Attestation Portions of this note were transcribed by Ismael Pradhan. I, Dr. Sol, personally performed the history, physical exam and medical decision-making; I reviewed and confirmed the accuracy of the information in the transcribed note. Signed by: Katherine Denny, 11/29/2016 at 15:18 copies to: Giuseppe Howard MD; Mj Farzier Shawna L MD Nov 29, 2016 14:22 ISMAEL PRADHAN Nov 29, 2016 14:30
[2016-11-29] MEDS ORDERED: VALA100026 (15:43)
[2016-11-29] MEDS ORDERED: DXM4T PO (15:49)
[2016-11-29] MEDS ORDERED: NAPR500T PO (15:49)
[2016-11-29 16:11] VITALS: BP 106/71; PULSE 45; RESP 16; O2SAT 100
== END 2016-11-29 16:16 | disposition home or self-care (01) ==
LOC: SED 11:51
DX: M48.02 Spinal stenosis, cervical region (principal); M62.81 Muscle weakness (generalized); Z87.891 Personal history of nicotine dependence; Z88.5 Allergy status to narcotic agent; Z88.8 Allergy status to other drugs, medicaments and biological substances
CPT/HCPCS: 96372; 99283; J1885

== ENCOUNTER 2016-12-05 01:10 | Emergency (ER) | payer OTHER ==
[~2016-12-05] VITALS: Ht 162.6 cm; Wt 79.5 kg
[~2016-12-05 01:10] MED LIST changes: +DXM4T PO; +NAPR500T PO; -OXYC1TAB24 PO; -SUCR1ORA PO; +VALA100026
[2016-12-05 01:12] VITALS: BP 119/77; PULSE 65; RESP 16; O2SAT 98
--- NOTE | 2016-12-05 01:19 | ED.REPORT ---
HPI-General Illness Date of Service Dec 05, 2016 ED Provider: Morgan Somers MD The patient is a 26 year old female with a history of multilevel disc degeneration and multiple bulging discs who presents to the ED due to 15 minutes of back spasms just [employer]. During the episode, she did not have any control of her arms and legs, and also reports increased numbness of her left arm and lower extremities for the past couple days. She has an appointment with Dr. Howard neurosurgery in 4 days. She was last seen at the ED 6 days ago similar symptoms including chronic back pain, loss of sensation in her lower extremities, a bout of urinary incontinence, and sexual dysfunction. She was discharged on a course of Decadron for 3 days and Percocet. Nursing Notes Stated Complaint: POST SEIZURE Chief Complaint: General Complaint Nursing Notes Reviewed: Yes Allergies: Coded Allergies: codeine (Verified Allergy, Intermediate, RASH, 12/05/16) lips swell metoclopramide (Verified Allergy, Intermediate, ANXIETY, 12/05/16) Scheduled Baclofen (Baclofen) 10 Mg Tablet 10 MG PO TID Dexamethasone (Dexamethasone) 4 Mg Tablet 10 MG PO DAILY 10mg daily on 11/30 and 12/01 Dexamethasone (Dexamethasone) 4 Mg Tablet 4 MG PO BID Pantoprazole DR (Protonix) 40 Mg Tablet 40 MG PO ASDIRECTED Take one tablet (40mg) twice daily (BID) for 1 month then, Take one tablet ( 40mg) once daily for two weeks then, Take Protonix 20mg daily indefinitely Scheduled PRN Naproxen (Naprosyn) 500 Mg Tablet 500 MG PO BID PRN PRN For Pain Ondansetron (Zofran) 8 Mg Tablet 8 MG PO Q4H PRN PRN For Nausea Valacyclovir (Valacyclovir) 1,000 Mg Tablet PRN cold sores oxyCODONE-Acetaminophen 5-325 mg (oxyCODONE-Acetaminophen 5-325 mg) 1 Each Tablet 1-2 TAB PO Q6H PRN PRN For Pain General Time Seen by MD: 01:18 Chief Complaint Other (back spasms) Hx Obtained From: Patient Arrived By: Walk-in Sudden in Onset?: Yes Onset Occurred: Just prior to arrival Symptom Duration: Since onset Recent Healthcare: Recent doctor visit Similar Sx Previous: Yes Past Medical History Past Medical History Anorexia Hiatal hernia Not yet diagnosed heart problem with palpitations Spinal stenosis C3-C6 Multilevel disc degeneration Asthma PTSD Bipolar disorder Depression Anxiety Cutting Previous suicide attempt Past Surgical History Reports: Cholecystectomy, Tonsillectomy Smoking History Former Smoker Social History Alcohol Use: Denies alcohol use Drug Use: Denies drug use, THC Other Social History: Local resident Ambulatory Status Independent Review of Systems Full Review of Systems Female: Reports: Incontinence Musculoskeletal: Reports: Back pain, Neck pain Neurologic: Reports: Bladder dysfunction, Bowel dysfunction, Numbness Complete sys rev & neg: except as marked. Physical Exam h/l/abd fine Vital Signs Vital Signs Date Time Temp Pulse Resp B/P Pulse Ox O2 Delivery O2 Flow Rate FiO2 12/05/16 03:33 36.7 55 16 110/52 100 Room Air 12/05/16 02:40 55 16 110/52 100 Room Air 12/05/16 01:12 36.7 65 16 119/77 98 Room Air Initial VS: Reviewed Head / Eyes: Atraumatic, Normocephalic, PERRL Respiratory: Breath sounds normal, Clear to auscultation, No respiratory distress Cardiovascular: Regular rate & rhythm, Heart sounds normal Abdomen / GI: Soft, Non-tender, No guarding, No rebound, No distention Skin: Warm, Dry Neurologic: Alert, Oriented Psychiatric: Mood/affect normal, Behavior normal General/Constitutional: Awake, Alert Distress / Hydration: Positive: Distress mild Neck: No swelling bridging and bracing careful attention to posture uncomfortable in her neck Wrist / Hand: No swelling 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 She presents with worsening symptoms including numbness and tingling particularly in her left hand and arm, perineal numbness and tingling, and intermittent incontinence. All the symptoms were improved on steroids and worse again off steroids. No new injury or other precipitating factor noted on history. Exam is essentially unchanged from recent documented exams. She is improved here with a soft collar, and began again on Decadron pending her evaluation by neurosurgery this Tuesday. She did not tolerate gabapentin for pain relief, and will be started and started on baclofen, beginning tonight. Provided also with a brief course of Ativan for the acute spasm she has been suffering at home. Follow-up with neurosurgery as planned. Time of Eval: 02:33 Patient Status: Condition improved Re-Evaluation/Progress Note: Pt rechecked. She reports better sensation in left arm. Informed pt of plan for treatment. F/U and RTER warnings given. Pt understands and agrees with plan. Counseled Regarding: Diagnosis, Lab results, Need for follow-up, When/why to return to ED Discharge & Departure Primary Impression: Cervical spinal stenosis Additional Impression: Disc disease with myelopathy, cervical Disposition: Home Discharge Condition All VS Reviewed: Yes Condition: Stable Additional Instructions: I am sending you home with a repeat course of steroids. Take Decadron 4 mg twice daily. Begin baclofen 3 times daily. You may take Ativan up to three times daily for acute muscle spasm. Use pain medication as needed. Follow up with your neurosurgery appointment on Tuesday. Return to the Emergency Department for any new or worsening symptoms. Referrals: Mj Frazier DO (PCP) Scribe Attestation Portion of this note were transcribed by Bhumika Rothman. I, Dr. Somers, personally performed the history, physical exam, and medical decision-making: I reviewed and confirmed the accuracy for the information in the transcribed note. Signed by: caleb Mcbride, 12/05/16 0300 copies to: Mj Frazier Christopher W MD Dec 05, 2016 01:18 Bhumika Rothman Dec 05, 2016 01:28
[2016-12-05] MEDS ORDERED: LORazepam 1 mg Tablet PO ONE (01:30)
[2016-12-05] MEDS ORDERED: Dexamethasone 20 mg/2 mL Oral Solution PO ONE (01:30)
[2016-12-05] MEDS ORDERED: _LORazepam 2 MG Tablet PO SCH (02:25)
[2016-12-05] MEDS ORDERED: OXYC1TAB24 PO (02:27)
[2016-12-05] MEDS ORDERED: BACL10TA PO (02:27)
[2016-12-05] MEDS ORDERED: DXM4T PO (02:28)
[2016-12-05] MEDS ORDERED: _LORazepam 2 MG Tablet PO PRN (02:31)
[2016-12-05 02:40] VITALS: BP 110/52; PULSE 55; RESP 16; O2SAT 100
[2016-12-05 03:33] VITALS: BP 110/52; PULSE 55; RESP 16; O2SAT 100
== END 2016-12-05 03:34 | disposition home or self-care (01) ==
LOC: SED 01:10
DX: M48.02 Spinal stenosis, cervical region (principal); M50.020 Cervical disc disorder with myelopathy, mid-cervical region, unspecified level; J45.909 Unspecified asthma, uncomplicated; Z87.39 Personal history of other diseases of the musculoskeletal system and connective tissue; Z87.891 Personal history of nicotine dependence; Z88.5 Allergy status to narcotic agent; Z88.8 Allergy status to other drugs, medicaments and biological substances

== ENCOUNTER 2017-04-09 00:20 | Emergency (ER) | payer OTHER ==
[~2017-04-09] VITALS: Ht 162.6 cm; Wt 81.8 kg
[~2017-04-09 00:20] MED LIST changes: +BACL10TA PO; +OXYC1TAB24 PO
[2017-04-09 00:23] VITALS: BP 131/82; PULSE 77; RESP 16; O2SAT 100
--- NOTE | 2017-04-09 01:20 | ED.REPORT ---
HPI-General Illness Date of Service Apr 09, 2017 ED Provider: Dr. Somers Pt is a 27 year old female with a hx of chronic neck and back pain, spinal stenosis, asthma, anxiety, PTSD, and bipolar presenting to the ED complaining of back and neck pain. Associated symptoms include urinary incontinence, anxiety , chest pain, palpitations, and left arm numbness. Denies fever, chills, SOB, wheezing, nausea or vomiting. Pt reports that she is currently going through court for domestic violence so she is under a lot of stress. Nursing Notes Stated Complaint: HEADACHE Chief Complaint: Back Pain or Injury Nursing Notes Reviewed: Yes Allergies: Coded Allergies: metoclopramide (Verified Allergy, Intermediate, ANXIETY, 04/09/17) Scheduled Baclofen (Baclofen) 10 Mg Tablet 10 MG PO TID Dexamethasone (Dexamethasone) 4 Mg Tablet 10 MG PO DAILY 10mg daily on 11/30 and 12/01 Dexamethasone (Dexamethasone) 4 Mg Tablet 4 MG PO BID Pantoprazole DR (Protonix) 40 Mg Tablet 40 MG PO ASDIRECTED Take one tablet (40mg) twice daily (BID) for 1 month then, Take one tablet ( 40mg) once daily for two weeks then, Take Protonix 20mg daily indefinitely Scheduled PRN Lorazepam (Lorazepam) 1 Mg Tablet 1 MG PO HS PRN PRN For Insomnia Naproxen (Naprosyn) 500 Mg Tablet 500 MG PO BID PRN PRN For Pain Ondansetron (Zofran) 8 Mg Tablet 8 MG PO Q4H PRN PRN For Nausea Sumatriptan (Sumatriptan) 20 Mg [place] 20 MG NS ONCE PRN PRN migraine Valacyclovir (Valacyclovir) 1,000 Mg Tablet PRN cold sores oxyCODONE-Acetaminophen 5-325 mg (oxyCODONE-Acetaminophen 5-325 mg) 1 Each Tablet 1-2 TAB PO Q6H PRN PRN For Pain General Time Seen by MD: 01:18 Chief Complaint Back pain, Other (Neck pain) Hx Obtained From: Patient Arrived By: Walk-in Sudden in Onset?: No Onset Occurred: Onset unknown Symptom Duration: Since onset Location: : Back: Neck Quality: Painful Severity: Current: Severe Severity: Maximum: Severe Recent Healthcare: No recent doctor visit, No recent hospitalization Similar Sx Previous: Yes Past Medical History Past Medical History Anorexia Hiatal hernia Not yet diagnosed heart problem with palpitations Spinal stenosis C3-C6 Multilevel disc degeneration Asthma PTSD Bipolar disorder Depression Anxiety Cutting Previous suicide attempt Past Surgical History Reports: Cholecystectomy, Tonsillectomy Smoking History Former Smoker Social History Alcohol Use: Denies alcohol use Drug Use: Denies drug use, THC Other Social History: Local resident Ambulatory Status Independent Review of Systems Full Review of Systems Constitutional: Denies: Chills, Fever Respiratory: Denies: Shortness of breath, Wheezing Cardiovascular: Reports: Chest pain, Palpitations GI: Denies: Nausea, Vomiting Female: Reports: Incontinence Musculoskeletal: Reports: Back pain, Neck pain Neurologic: Reports: Numbness Complete sys rev & neg: except as marked. Physical Exam Vital Signs Vital Signs Date Time Temp Pulse Resp B/P Pulse Ox O2 Delivery O2 Flow Rate FiO2 04/09/17 02:17 36.4 72 16 127/80 100 Room Air 04/09/17 00:23 36.4 77 16 131/82 100 Room Air Initial VS: Reviewed General/Constitutional: Well-developed, Well-nourished Head / Eyes: Atraumatic, Normocephalic, PERRL ENT: Mucous membranes moist, Conjunctiva normal, No scleral icterus Neck: Supple, Non-tender, Full range of motion Respiratory: Breath sounds normal, Clear to auscultation, No respiratory distress Cardiovascular: Regular rate & rhythm, Heart sounds normal, Intact distal pulses Abdomen / GI: Soft, Non-tender, No guarding, No rebound, No distention Extremities: Vascular intact, Neuro intact, No swelling, No tenderness Skin: Warm, Dry, No cyanosis Neurologic: Alert, Oriented, Nonfocal Psychiatric: Mood/affect normal, Behavior normal, Normal thought content Re-Eval/Medical Decision Med Decision/Clinical Course 27-year-old presents again with cervical radiculopathy symptoms and a known history of spinal stenosis. Being seen by neurosurgery and awaits neurodiagnostic testing. She is mostly here due to insomnia and increased stress. Symptoms are otherwise identical to previous presentations and not progressive. She is discharged home with a brief course of lorazepam, with the understanding that this can increase frequency of migraines. Provided also with nasal sumatriptan. Discharged in stable condition. Time of Eval: 01:34 Patient Status: Condition improved Re-Evaluation/Progress Note: Discussed PMHX and plan for discharge and follow up with neurosurgery. Pt understands and agrees with plan. Counseled Regarding: Diagnosis, Lab results, Need for follow-up, When/why to return to ED Discharge & Departure Primary Impression: Disc disease with myelopathy, cervical Additional Impressions: Migraine Cervical spinal stenosis Disposition: Home Discharge Condition All VS Reviewed: Yes Condition: Improved Additional Instructions: Begin lorazepam at night, and up to three times daily at most. Be aware that it is habit-forming, and can cause a flare of migraines. You may use sumatriptan as a nasal spray for migraines. It is formulated as a nasal spray, but it is not available in all pharmacies in that form. Take single spray at the earliest opportunity at the onset of a migraine. Do not use a repeat dose for that migraine. Follow-up with your doctor as planned. Follow-up with neurosurgery as planned. Call on Tuesday about the neurodiagnostic testing. Referrals: OTHER,PHYSICIAN (PCP) Scribe Attestation Portions of this note were transcribed by Aidee Wills. I, Dr. Somers personally performed the history, physical exam and medical decision-making; I reviewed and confirmed the accuracy of the information in the transcribed note. Signed by: Katherine Heller, 04/09/2017. Morgan Somers MD Apr 09, 2017 01:20 AIDEE WILLS Apr 09, 2017 01:32
[2017-04-09] MEDS ORDERED: LORazepam 1 mg Tablet PO ONE (01:40)
[2017-04-09] MEDS ORDERED: LORA1TAB PO (01:45)
[2017-04-09] MEDS ORDERED: SUMA20SP2 NS (01:47)
[2017-04-09 02:17] VITALS: BP 127/80; PULSE 72; RESP 16; O2SAT 100
== END 2017-04-09 02:18 | disposition home or self-care (01) ==
LOC: SED 00:20
DX: M50.00 Cervical disc disorder with myelopathy, unspecified cervical region (principal); G43.909 Migraine, unspecified, not intractable, without status migrainosus; M48.02 Spinal stenosis, cervical region; F43.10 Post-traumatic stress disorder, unspecified; Z87.891 Personal history of nicotine dependence; Z88.8 Allergy status to other drugs, medicaments and biological substances